=== PATIENT | male | born 1950 | race Caucasian/White ===

== ENCOUNTER 2017-01-18 22:59 | Emergency (ER) | payer MEDICARE, MEDICAID ==
[~2017-01-18] VITALS: Ht 175.3 cm; Wt 95.3 kg
[2017-01-18] MEDS ORDERED: FOLI1TAB2 PO (23:16)
[2017-01-18] MEDS ORDERED: FURO40TA2 PO (23:16)
[2017-01-18] MEDS ORDERED: SPIR100T PO (23:16)
[2017-01-18] MEDS ORDERED: MECLIZINE 25 MG TABLET PO ONE (23:45)
[2017-01-18] MEDS ORDERED: NS 500 ML IV ONE (23:45)
[2017-01-19 00:05] LABS: BASO # 0.1 K/mm3 (0.0-0.2); BASO % 1.1 % (0.0-1.0); EOS # 0.2 K/mm3 (0.0-0.50); EOS % 3.6 % (0.0-3.0); LARGE UNSTAINED CELL # 0.1 K/mm3 (0.0-0.4); LARGE UNSTAINED CELL % 1.3 % (0.0-4.0); LYMPH # 1.2 K/mm3 (1.5-4.5); LYMPH % 18.3 % (24.0-44.0); MEAN CORPUSCULAR HEMOGLOBIN 32.5 pg (27.0-33.0); MEAN CORPUSCULAR HGB CONC 34.1 g/dl (32.0-36.5); MEAN CORPUSCULAR VOLUME 95.2 fl (80.0-96.0); MONO # 0.5 K/mm3 (0.0-0.8); NEUTROPHILS # 4.2 K/mm3 (1.8-7.7); NEUTROPHILS % 67.7 % (36.0-66.0); PLATELET COUNT, AUTOMATED 103 k/mm3 (150-450); RED CELL DISTRIBUTION WIDTH 12.9 % (11.5-14.5); WHITE BLOOD COUNT 6.2 K/mm3 (4.0-10.0)
[2017-01-19 00:16] LABS: INR 0.91
[2017-01-19 00:22] LABS: ANION GAP 5 MEQ/L (8-16); BLOOD UREA NITROGEN 18 MG/DL (7-18); CALCIUM LEVEL 8.8 MG/DL (8.8-10.2); CARBON DIOXIDE LEVEL 30 MEQ/L (21-32); CHLORIDE LEVEL 102 MEQ/L (98-107); CREATININE FOR GFR 1.11 MG/DL (0.70-1.30); GLOMERULAR FILTRATION RATE > 60.0 (>49); GLUCOSE, FASTING 131 MG/DL (80-110); POTASSIUM SERUM 3.8 MEQ/L (3.5-5.1); SODIUM LEVEL 137 MEQ/L (136-145)
--- NOTE | 2017-01-19 00:30 | REPUSA ---
CLINICAL HISTORY: Syncope. TECHNIQUE: Multiple axial CT images were obtained through the brain without IV contrast material. COMMENTS: There is normal configuration of sella turcica. There are no intra or extra-axial collections. There is no mass effect or midline shift. There is no evidence of hematoma formation. No hydrocephalus is p resent. The ventricles are symmetrical. No abnormal calcifications are present. There is diffuse age-appropriate cerebellar and cerebral atrophy with proportionally dilated ventricl es and cortical sulci. There are bilateral periventricular and subcortical white matter hypolucencies compatible with mild c hronic microvascular disease. Otherwise, no significant focal abnormalities are seen either in the posterior fossa or supratentoria l compartment. IMPRESSION: 1. Age-appropriate cerebellar and cerebral atrophy. 2. Mild chronic microvascular disease. 3. No evidence of acute intracranial pathology. Thank you for your kind referral of this patient.
[2017-01-19 01:06] VITALS: O2SAT 94
[2017-01-19] MEDS ORDERED: MECL-68 PO (01:35)
[2017-01-19 01:48] VITALS: BP 142/71
--- NOTE | 2017-01-19 07:23 | ECGEPIP ---
Stationary ECG Study [facility] - ED Test Date: 2017-01-18 Pat Name: KISHAN VILLAFANA Department: Room: - Gender: M Supervisor Graphite: yann : 1950 Requested By: RANDY MCDANIEL Order Number: [id number] Reading MD: Silvana Marie Measurements Intervals [place] Rate: 91 P: 86 [place]: 139 QRS: 86 QRSD: 80 T: 71 QT: 347 QTc: 429 Interpretive Statements SINUS RHYTHM NSTTW ABNORMALITY SIMILAR 11/18/15 Electronically Signed On 01-19-2017 7:23:18 EDT by Silvana Marie
== END 2017-01-19 01:49 | disposition home or self-care (01) ==
LOC: M ED 22:59
DX: H83.09 Labyrinthitis, unspecified ear (principal); I10 Essential (primary) hypertension; K74.60 Unspecified cirrhosis of liver; F17.200 Nicotine dependence, unspecified, uncomplicated; Z82.49 Family history of ischemic heart disease and other diseases of the circulatory system; Z79.899 Other long term (current) drug therapy
CPT/HCPCS: 36415; 70450; 80048; 82550; 82553; 84443; 84484; 85025; 85610; 93005; 93041; 96374; 99284; G0480

== ENCOUNTER → 2019-05-11 | Outpatient (CLI) | payer MEDICARE, MEDICAID ==
[~2019-05-11] MED LIST: FOLI1TAB11 PO; FURO40TA2 PO; MECL1TAB31 PO; SPIR100T3 PO
[2019-05-11 13:55] LABS: ALBUMIN 3.5 GM/DL (3.2-5.2); ALT/SGPT 14 U/L (12-78); BILIRUBIN,TOTAL 0.8 MG/DL (0.2-1.0); BLOOD UREA NITROGEN 11 MG/DL (7-18); CALCIUM LEVEL 8.8 MG/DL (8.8-10.2); CARBON DIOXIDE LEVEL 29 MEQ/L (21-32); CHLORIDE LEVEL 98 MEQ/L (98-107); CHOLESTEROL LEVEL 169 MG/DL (<200); CHOLESTEROL RISK RATIO 4.023 (<5); CREATININE FOR GFR 0.95 MG/DL (0.70-1.30); GLOMERULAR FILTRATION RATE > 60.0 (>49); GLUCOSE, FASTING 98 MG/DL (70-100); HDL CHOLESTEROL 42 MG/DL (>40); LDL CHOLESTEROL 108 MG/DL (<100); NON-HDL-C 127 MG/DL; POTASSIUM SERUM 4.3 MEQ/L (3.5-5.1); PROSTATIC SPECIFIC AG MONITOR 0.14 NG/ML (< 4.00); SODIUM LEVEL 136 MEQ/L (136-145); TRIGLYCERIDES LEVEL 95 MG/DL (<150)
== END ==
LOC: M WUC 08:43
PROVIDERS: ATTEND Nurse Practitioner Family
DX: N40.0 Benign prostatic hyperplasia without lower urinary tract symptoms (principal); E78.00 Pure hypercholesterolemia, unspecified; I10 Essential (primary) hypertension

== ENCOUNTER 2021-02-21 22:07 | Emergency (ER) | payer MEDICARE, MEDICAID ==
[~2021-02-21] VITALS: Ht 177.8 cm; Wt 104.5 kg
[2021-02-21 23:01] LABS: APPEARANCE, URINE CLEAR (CLEAR); BACTERIA, URINE AUTO NEGATIVE (NEGATIVE); BILIRUBIN, URINE AUTO NEGATIVE (NEGATIVE); BLOOD, URINE BLOOD NEGATIVE (NEGATIVE); COLOR, URINE STRAW (YELLOW); GLUCOSE, URINE (UA) AUTO NEGATIVE (NEGATIVE); KETONE, URINE AUTO NEGATIVE (NEGATIVE); LEUKOCYTE ESTERASE, URINE AUTO NEGATIVE (NEGATIVE); NITRITE, URINE AUTO NEGATIVE (NEGATIVE); PROTEIN, URINE AUTO NEGATIVE (NEGATIVE); RBC, URINE AUTO 3 /HPF (0-3); SPECIFIC GRAVITY URINE AUTO 1.004 (1.002-1.035); SQUAMOUS EPITHELIAL CELL UR AU 0 /HPF (0-6); UROBILINOGEN, URINE AUTO 0.2 mg/dL (0.0-2.0); WBC, URINE AUTO 0 /HPF (0-3)
[2021-02-21 23:05] LABS: HEMATOCRIT 46.5 % (42.0-52.0); HEMOGLOBIN 15.2 g/dl (13.5-17.5); MEAN CORPUSCULAR HEMOGLOBIN 29.9 pg (27.0-33.0); MEAN CORPUSCULAR HGB CONC 32.7 g/dl (32.0-36.5); MEAN CORPUSCULAR VOLUME 91.5 fl (80.0-96.0); RED BLOOD COUNT 5.08 10^6/uL (4.30-6.10); WHITE BLOOD COUNT 4.6 10^3/uL (4.0-10.0)
[2021-02-21 23:26] LABS: BLOOD UREA NITROGEN 14 MG/DL (7-18); CALCIUM LEVEL 8.9 MG/DL (8.8-10.2); CARBON DIOXIDE LEVEL 29 MEQ/L (21-32); CHLORIDE LEVEL 102 MEQ/L (98-107); CREATININE FOR GFR 0.87 MG/DL (0.70-1.30); GLOMERULAR FILTRATION RATE > 60.0 (>42); GLUCOSE, FASTING 117 MG/DL (70-100); POTASSIUM SERUM 4.5 MEQ/L (3.5-5.1); SODIUM LEVEL 138 MEQ/L (136-145)
[2021-02-21 23:29] LABS: PLATELET COUNT, AUTOMATED 90 10^3/uL (150-450)
--- NOTE | 2021-02-21 23:47 | REPVR ---
PROCEDURE INFORMATION: Exam: XR Chest Exam date and time: 02/21/2021 10:59 PM Age: 71 years old Clinical indication: Pain; On breathing; Additional info: Chest pain/trauma TECHNIQUE: Imaging protocol: XR of the chest. Views: 2 views. COMPARISON: No relevant prior studies available. FINDINGS: Lungs: Dependent subsegmental pulmonary atelectasis. Pleural spaces: Unremarkable. No pleural effusion. No pneumothorax. Heart/Mediastinum: Unremarkable. No cardiomegaly. Bones/joints: Unremarkable. IMPRESSION: No acute findings. Electronically signed by: Sharath Herman On 02/21/2021 23:46:41 PM
--- NOTE | 2021-02-21 23:51 | REPVR ---
PROCEDURE INFORMATION: Exam: CT Chest Without Contrast; Diagnostic Exam date and time: 02/21/2021 11:19 PM Age: 71 years old Clinical indication: Pain; Right-sided; Additional info: Fall with right chest pain TECHNIQUE: Imaging protocol: Diagnostic computed tomography of the chest without contrast. 3D rendering (Not supervised by radiologist): MIP and/or 3D reconstructed images were created by the technologist. Radiation optimization: All CT scans at this facility use at least one of these dose optimization techniques: automated exposure control; mA and/or kV adjustment per patient size (includes targeted exams where dose is matched to clinical indication); or iterative reconstruction. COMPARISON: CR Chest, 2 view PA, Lat 2021-02-21 22:55 FINDINGS: Lungs: Mild bronchial wall thickening. Pleural spaces: Unremarkable. No pneumothorax. No pleural effusion. Heart: Moderate coronary artery calcification. Mediastinal space: Multiple paraesophageal and upper abdominal varices. Portal hypertension. Mild distal esophageal thickening. Aorta: Unremarkable. No aortic aneurysm. Lymph nodes: Unremarkable. No enlarged lymph nodes. Liver: Liver nodular contour, evidence of cirrhosis. Bones/joints: Acute right posterior nondisplaced 9 -12 rib fractures. Irregular sclerosis and patchy low attenuation within the opposing T6 and T7 vertebral bodies and endplates., likely degenerative in the absence any malignancy-not excluded. Soft tissues: Recanalized umbilical vein. IMPRESSION: 1. Acute right posterior nondisplaced 9 -12 rib fractures. 2. Liver nodular contour, evidence of cirrhosis. 3. Multiple paraesophageal and upper abdominal varices. Portal hypertension. 4. Irregular sclerosis and patchy low attenuation within the opposing T6 and T7 vertebral bodies and endplates., likely degenerative in the absence any malignancy-not excluded. Electronically signed by: Sharath Herman On 02/21/2021 23:50:49 PM
--- NOTE | 2021-02-22 00:18 | REPVR ---
PROCEDURE INFORMATION: Exam: CT Head Without Contrast Exam date and time: 02/21/2021 11:23 PM Age: 71 years old Clinical indication: Injury or trauma; Fall; Concussion/head injury; Injury details: Denies hitting head TECHNIQUE: Imaging protocol: Computed tomography of the head without contrast. Radiation optimization: All CT scans at this facility use at least one of these dose optimization techniques: automated exposure control; mA and/or kV adjustment per patient size (includes targeted exams where dose is matched to clinical indication); or iterative reconstruction. COMPARISON: CT Head without contrast 01/18/2017 11:34 PM FINDINGS: Brain: There is no evidence of intracranial bleed. There are patchy areas of low density in the periventricular white matter consistent with chronic ischemic changes. Cerebral ventricles: There is mild prominence of the ventricles. Paranasal sinuses: The clear paranasal sinuses. Mastoid air cells: Clear mastoid air cells. Orbital cavity: The orbits appear symmetric. Bones/joints: Unremarkable. No acute fracture. Soft tissues: There is no evidence of soft tissue abnormality. IMPRESSION: 1. Chronic ischemic changes. 2. No evidence of fracture and no evidence of bleed. Electronically signed by: Stiven Bryant On 02/22/2021 00:17:32 AM
[2021-02-22] MEDS ORDERED: PERCOCET 5MG/325MG TAB PO ONE (01:10)
[2021-02-22] MEDS ORDERED: LIDOCAINE 5% (LIDODERM) PATCH TD ONE (01:10)
[2021-02-22] MEDS ORDERED: LIDO5DIS41 TD (01:31)
[2021-02-22 01:45] VITALS: BP 142/58
--- NOTE | 2021-02-22 11:22 | ECGEPIP ---
[facility] - ED Test Date: 2021-02-21 Pat Name: KISHAN VILLAFANA Department: Room: - Gender: Male Core Inspector: : 1950 Requested By: JUANITO Vasquez Order Number: [id number] Reading MD: Silvana Marie Measurements Intervals [place] Rate: 92 P: 95 [place]: 124 QRS: 88 QRSD: 82 T: 49 QT: 368 QTc: 455 Interpretive Statements Sinus rhythm with premature supraventricular complexes NSTTW abnormalities similar 01/18/17 Electronically Signed on 02-22-2021 11:22:28 EDT by Silvana Marie
[2021-02-22] MEDS ORDERED: **NOTE PATIENT COMMENT** MISC XX SCH (21:00)
== END 2021-02-22 01:55 | disposition home or self-care (01) ==
LOC: M ED 22:07
DX: S22.41XA Multiple fractures of ribs, right side, initial encounter for closed fracture (principal); W19.XXXA Unspecified fall, initial encounter; Y92.9 Unspecified place or not applicable; Y93.9 Activity, unspecified; Y99.9 Unspecified external cause status; R16.0 Hepatomegaly, not elsewhere classified; Z79.899 Other long term (current) drug therapy

== ENCOUNTER → 2022-12-11 | Outpatient (REF) | payer MEDICARE, MEDICAID ==
[~2022-12-11] MED LIST changes: +LIDO5DIS41 TD
[2022-12-11 18:35] LABS: BLOOD UREA NITROGEN 17 MG/DL (9-23); CALCIUM LEVEL 9.1 MG/DL (8.3-10.6); CARBON DIOXIDE LEVEL 28 MMOL/L (20-31); CHLORIDE LEVEL 99 MMOL/L (98-107); CREATININE FOR GFR 0.92 MG/DL (0.70-1.30); GLOMERULAR FILTRATION RATE > 60.0 (>42); GLUCOSE, FASTING 93 MG/DL (74-106); POTASSIUM SERUM 4.6 MMOL/L (3.5-5.1); SODIUM LEVEL 135 MMOL/L (136-145)
== END ==
LOC: M LAB REF 16:23
PROVIDERS: ATTEND Pediatrics
DX: I10 Essential (primary) hypertension (principal); K74.60 Unspecified cirrhosis of liver

== ENCOUNTER → 2023-09-16 | Outpatient (REF) | payer MEDICARE, MEDICAID ==
[~2023-09-16] MED LIST changes: +MECL-209 PO; -MECL1TAB31 PO
[2023-09-16 18:19] LABS: BASO # 0.1 10^3/uL (0.0-0.2); BASO % 1.3 % (0.0-1.0); EOS # 0.2 10^3/uL (0.0-0.5); EOS % 3.4 % (0.0-3.0); HEMATOCRIT 47.8 % (42.0-52.0); HEMOGLOBIN 15.7 g/dl (13.5-17.5); LYMPH # 0.8 10^3/uL (1.5-5.0); MEAN CORPUSCULAR HEMOGLOBIN 30.3 pg (27.0-33.0); MEAN CORPUSCULAR HGB CONC 32.8 g/dl (32.0-36.5); MEAN CORPUSCULAR VOLUME 92.3 fl (80.0-96.0); MONO # 0.6 10^3/uL (0.0-0.8); MONO % 9.9 % (2.0-8.0); PLATELET COUNT, AUTOMATED 104 10^3/uL (150-450); RED BLOOD COUNT 5.18 10^6/uL (4.30-6.10); WHITE BLOOD COUNT 5.6 10^3/uL (4.0-10.0)
[2023-09-16 18:37] LABS: THYROID STIMULATING HORMONE 1.715 uIU/ML (0.55-4.78)
[2023-09-16 18:39] LABS: ALBUMIN 3.4 G/DL (3.2-5.2); ALKALINE PHOSPHATASE 109 U/L (46-116); ALT/SGPT 13 U/L (7.0-40); AST/SGOT 17 U/L (<34); BILIRUBIN,TOTAL 0.4 MG/DL (0.3-1.2); BLOOD UREA NITROGEN 17 MG/DL (9-23); CALCIUM LEVEL 9.2 MG/DL (8.3-10.6); CARBON DIOXIDE LEVEL 30 MMOL/L (20-31); CHLORIDE LEVEL 103 MMOL/L (98-107); CHOLESTEROL LEVEL 186 MG/DL (<200); CHOLESTEROL RISK RATIO 4.63 (<5); CREATININE FOR GFR 0.96 MG/DL (0.70-1.30); GLOMERULAR FILTRATION RATE > 60.0 (>42); GLUCOSE, FASTING 106 MG/DL (74-106); HDL CHOLESTEROL 40.1 MG/DL (>40); LDL CHOLESTEROL 122.5 MG/DL (<100); NON-HDL-C 145.9 MG/DL; POTASSIUM SERUM 5.1 MMOL/L (3.5-5.1); SODIUM LEVEL 138 MMOL/L (136-145); TOTAL PROTEIN 6.9 G/DL (5.7-8.2); TRIGLYCERIDES LEVEL 117 MG/DL (<150)
== END ==
LOC: M LAB REF 17:26
PROVIDERS: ATTEND Pediatrics
DX: K74.60 Unspecified cirrhosis of liver (principal); E78.5 Hyperlipidemia, unspecified

== ENCOUNTER → 2024-02-28 | Outpatient (REF) | payer MEDICARE, MEDICAID ==
[~2024-02-28] MED LIST changes: +ANOR1AER INH; +MOME50SP2 NARES
[2024-02-28 13:48] LABS: ALBUMIN 3.5 G/DL (3.2-5.2); ALKALINE PHOSPHATASE 114 U/L (46-116); ALT/SGPT 16 U/L (7.0-40); AST/SGOT 20 U/L (<34); BASO # 0.1 10^3/uL (0.0-0.2); BASO % 0.9 % (0.0-1.0); BILIRUBIN,DIRECT 0.2 MG/DL (<0.4); BILIRUBIN,TOTAL 0.7 MG/DL (0.3-1.2); BLOOD UREA NITROGEN 17 MG/DL (9-23); CALCIUM LEVEL 9.6 MG/DL (8.3-10.6); CARBON DIOXIDE LEVEL 30 MMOL/L (20-31); CHLORIDE LEVEL 100 MMOL/L (98-107); EOS # 0.1 10^3/uL (0.0-0.5); EOS % 1.9 % (0.0-3.0); GLOMERULAR FILTRATION RATE > 60.0 (>42); GLUCOSE, FASTING 102 MG/DL (74-106); HEMATOCRIT 47.8 % (42.0-52.0); HEMOGLOBIN 15.6 g/dl (13.5-17.5); LYMPH # 0.7 10^3/uL (1.5-5.0); LYMPH % 13.5 % (24.0-44.0); MEAN CORPUSCULAR HGB CONC 32.6 g/dl (32.0-36.5); MEAN CORPUSCULAR VOLUME 91.9 fl (80.0-96.0); MONO # 0.6 10^3/uL (0.0-0.8); MONO % 10.5 % (2.0-8.0); NEUTROPHILS # 3.9 10^3/uL (1.5-8.5); NEUTROPHILS % 72.8 % (36.0-66.0); PLATELET COUNT, AUTOMATED 102 10^3/uL (150-450); POTASSIUM SERUM 4.4 MMOL/L (3.5-5.1); SODIUM LEVEL 136 MMOL/L (136-145); WHITE BLOOD COUNT 5.4 10^3/uL (4.0-10.0)
== END ==
LOC: M LAB REF 12:12
PROVIDERS: ATTEND Pediatrics
DX: D69.6 Thrombocytopenia, unspecified (principal); K74.60 Unspecified cirrhosis of liver; I10 Essential (primary) hypertension

== ENCOUNTER → 2025-03-17 | Outpatient (REF) | payer MEDICARE, MEDICAID ==
[~2025-03-17] MED LIST changes: +LIDO1ADH93 TD; -LIDO5DIS41 TD
[2025-03-17 15:09] LABS: BASO # 0.1 10^3/uL (0.0-0.2); BASO % 1.0 % (0.0-1.0); EOS # 0.1 10^3/uL (0.0-0.5); EOS % 2.0 % (0.0-3.0); LYMPH # 0.7 10^3/uL (1.5-5.0); LYMPH % 13.3 % (24.0-44.0); MONO # 0.4 10^3/uL (0.0-0.8); MONO % 7.2 % (2.0-8.0); NEUTROPHILS # 3.7 10^3/uL (1.5-8.5); NEUTROPHILS % 76.1 % (36.0-66.0); PLATELET COUNT, AUTOMATED 102 10^3/uL (150-450)
[2025-03-17 15:33] LABS: ALT/SGPT 14.0 U/L (7.0-40); AST/SGOT 27.0 U/L (<34); CALCIUM LEVEL 8.9 MG/DL (8.3-10.6); CARBON DIOXIDE LEVEL 28.0 MMOL/L (20-31); CHLORIDE LEVEL 99.0 MMOL/L (98-107); CHOLESTEROL LEVEL 188.0 MG/DL (<200); CHOLESTEROL RISK RATIO 4.77 (<5); CREATININE FOR GFR 0.89 MG/DL (0.70-1.30); GLOMERULAR FILTRATION RATE 89.9 (>42); LDL CHOLESTEROL 125.0 MG/DL (<100); NON-HDL-C 148.6 MG/DL; POTASSIUM SERUM 4.3 MMOL/L (3.5-5.1); SODIUM LEVEL 138.0 MMOL/L (136-145); TRIGLYCERIDES LEVEL 118.0 MG/DL (<150)
== END ==
LOC: M LAB REF 14:16
PROVIDERS: ATTEND Pediatrics
DX: E78.5 Hyperlipidemia, unspecified (principal); I10 Essential (primary) hypertension; K74.60 Unspecified cirrhosis of liver

== ENCOUNTER → 2025-03-22 | Outpatient (CLI) | payer MEDICARE, MEDICAID | LOC: M RAD 10:04 | PROVIDERS: ATTEND Pediatrics | DX: M54.32 Sciatica, left side (principal); J44.9 Chronic obstructive pulmonary disease, unspecified ==

== ENCOUNTER 2025-04-01 10:30 | Day surgery (SDC) | payer MEDICARE, MEDICAID ==
[~2025-04-01] VITALS: Ht 172.7 cm; Wt 87.8 kg
[~2025-04-01 10:30] MED LIST changes: +LIDO1ADH20 TP; +PHENYLEPHRINE 10% OPHTH SOL 5ML OD PRN; +TREL1AER INH
[2025-04-01] MEDS ORDERED: MIDAZOLAM INJ 2 MG/2 ML VIAL As Ordered ONE (10:58)
[2025-04-01] MEDS: CYCLOPENTOLATE 1% OPHTH SOLN 2 ML BTL OD SCH (12:14)
[2025-04-01] MEDS: TROPICAMIDE 1% OPHTH SOLN 15ML OD SCH (12:14)
[2025-04-01] MEDS: OFLOXACIN 0.3 % (OCUFLOX) OPTH SOL 5ML OD ONE (12:14)
[2025-04-01] MEDS: LIDOCAINE 3.5% 1 ML OPHTH TOPICAL GEL OU ONE (12:15)
[2025-04-01] MEDS: PHENYLEPHRINE 2.5% OPHTH SOL 2ML OD SCH (12:15)
[2025-04-01] MEDS ORDERED: ASPI81TA26 PO (12:35)
[2025-04-01] MEDS: BSS IRRIG/VANCO(10MG)/TOBRA(5MG)/EPINEPH(1:1000-0.5CC)500ML BAG-ORONLY As Ordered ONE (13:06)
[2025-04-01] MEDS: LIDOCAINE 1% SDV 5 ML VIAL As Ordered ONE (13:06)
[2025-04-01] MEDS: CEFUROXIME 1 MG/0.1 ML INTRACAMERAL INJ As Ordered ONE (13:06)
[2025-04-01 13:20] VITALS: BP 124/79; TEMP 97; O2SAT 96
== END 2025-04-01 13:42 | disposition home or self-care (01) ==
LOC: M SDC 10:30
PROVIDERS: ATTEND Ophthalmology
DX: H25.11 Age-related nuclear cataract, right eye (principal); H57.03 Miosis; I10 Essential (primary) hypertension; J44.9 Chronic obstructive pulmonary disease, unspecified; K74.60 Unspecified cirrhosis of liver; E78.00 Pure hypercholesterolemia, unspecified; Z79.899 Other long term (current) drug therapy; Z79.51 Long term (current) use of inhaled steroids; Z79.82 Long term (current) use of aspirin; Z90.49 Acquired absence of other specified parts of digestive tract
CPT/HCPCS: 66982; J0697; J2250; J3010; V2632

== ENCOUNTER 2025-04-29 09:22 | Day surgery (SDC) | payer MEDICARE, MEDICAID ==
[~2025-04-29] VITALS: Ht 172.7 cm; Wt 88.7 kg
[~2025-04-29 09:22] MED LIST changes: +ASPI81TA26 PO; +MIDAZOLAM INJ 2 MG/2 ML VIAL As Ordered ONE; -PHENYLEPHRINE 10% OPHTH SOL 5ML OD PRN; +PHENYLEPHRINE 10% OPHTH SOL 5ML OS PRN
[2025-04-29] MEDS: OFLOXACIN 0.3 % (OCUFLOX) OPTH SOL 5ML OS ONE (10:54)
[2025-04-29] MEDS: CYCLOPENTOLATE 1% OPHTH SOLN 2 ML BTL OS SCH (10:55)
[2025-04-29] MEDS: LIDOCAINE 3.5% 1 ML OPHTH TOPICAL GEL OU ONE (10:55)
[2025-04-29] MEDS: PHENYLEPHRINE 2.5% OPHTH SOL 2ML OS SCH (10:55)
[2025-04-29] MEDS: TROPICAMIDE 1% OPHTH SOLN 15ML OS SCH (10:55)
[2025-04-29] MEDS: LIDOCAINE 1% SDV 5 ML VIAL As Ordered ONE (11:39)
[2025-04-29] MEDS: BSS IRRIG/VANCO(10MG)/TOBRA(5MG)/EPINEPH(1:1000-0.5CC)500ML BAG-ORONLY As Ordered ONE (11:42)
[2025-04-29] MEDS: CEFUROXIME 1 MG/0.1 ML INTRACAMERAL INJ As Ordered ONE (11:45)
[2025-04-29 11:51] VITALS: BP 159/69; TEMP 97.6; O2SAT 97
== END 2025-04-29 12:18 | disposition home or self-care (01) ==
LOC: M SDC 09:22
PROVIDERS: ATTEND Ophthalmology
DX: H25.12 Age-related nuclear cataract, left eye (principal); I10 Essential (primary) hypertension; J44.9 Chronic obstructive pulmonary disease, unspecified; E78.00 Pure hypercholesterolemia, unspecified; K74.60 Unspecified cirrhosis of liver; I69.354 Hemiplegia and hemiparesis following cerebral infarction affecting left non-dominant side; I69.328 Other speech and language deficits following cerebral infarction; Z79.899 Other long term (current) drug therapy; Z79.51 Long term (current) use of inhaled steroids; Z90.49 Acquired absence of other specified parts of digestive tract; Z87.19 Personal history of other diseases of the digestive system
CPT/HCPCS: 66984; J0697; J2250; J3010; V2632

== ENCOUNTER 2025-08-14 22:02 | Inpatient (IN) | payer MEDICARE, MEDICAID ==
[~2025-08-14] VITALS: Ht 177.8 cm; Wt 82.4 kg
[~2025-08-14 22:02] MED LIST changes: +LIDO1ADH20 TD; -LIDO1ADH20 TP; -MIDAZOLAM INJ 2 MG/2 ML VIAL As Ordered ONE; -PHENYLEPHRINE 10% OPHTH SOL 5ML OS PRN
[2025-08-14] MEDS: IPRATROPIUM 0.5 MG/ALBUTEROL 2.5 MG INH SOL UD 3 ML NEB SCH (22:24)
[2025-08-14] MEDS: IPRATROPIUM 0.5 MG/ALBUTEROL 2.5 MG INH SOL UD 3 ML NEB ONE (22:24)
[2025-08-14 22:28] LABS: ABG BASE EXCESS -1.4 (-2.0-2.0); ABG HCO3 23.5 MMOL/L (22.0-26.0); ABG O2 SATURATION 99.1 % (95.0-99.0); ABG PARTIAL PRESSURE CO2 40.2 mmHg (35.0-45.0); ABG PARTIAL PRESSURE O2 188.7 mmHg (75.0-100.0); ABG STANDARD HCO3 23.3 MMOL/L. (22.0-26.0); ABG TOTAL CO2 24.7 MMOL/L (23.0-31.0); ABG pH (ARTERIAL) 7.384 UNITS (7.350-7.450)
[2025-08-14 22:31] LABS: VENOUS BASE EXCESS -5.9 (-2.0-2.0); VENOUS HCO3 21.7 MMOL/L (23.0-27.0); VENOUS O2 SATURATION 73.3 % (60.0-80.0); VENOUS PARTIAL PRESSURE CO2 50.5 mmHg (38.0-50.0); VENOUS PARTIAL PRESSURE O2 44.2 mmHg (30.0-50.0); VENOUS PH 7.251 UNITS (7.330-7.430); VENOUS STANDARD HCO3 19.1 MMOL/L; VENOUS TOTAL CO2 23.2 MMOL/L (24.0-28.0)
[2025-08-14 22:38] LABS: BASO # 0.0 10^3/uL (0.0-0.2); BASO % 0.8 % (0.0-1.0); EOS # 0.0 10^3/uL (0.0-0.5); EOS % 0.0 % (0.0-3.0); LYMPH # 0.4 10^3/uL (1.5-5.0); LYMPH % 7.4 % (24.0-44.0); MONO # 0.6 10^3/uL (0.0-0.8); MONO % 11.0 % (2.0-8.0); NEUTROPHILS # 4.2 10^3/uL (1.5-8.5); NEUTROPHILS % 80.4 % (36.0-66.0)
[2025-08-14] MEDS: ACETAMINOPHEN *IV* 1,000 MG in IV 1 EA IV ONE (22:49)
[2025-08-14 22:56] LABS: CK-MB VALUE MASS 3.9 NG/ML (<3.6)
[2025-08-14 23:05] LABS: PLATELET COUNT, AUTOMATED 75 10^3/uL (150-450)
[2025-08-14] MEDS: NS (Normal Saline) 0.9% 1,000 ML IV ONE (23:05)
[2025-08-14 23:57] LABS: CK-MB VALUE MASS 3.9 NG/ML (<3.6)
[2025-08-15] VITALS (8 sets, daily range): BP systolic 88–136; BP diastolic 56–70; TEMP 96.8–97.9; O2SAT 90–95
[2025-08-15 00:11] LABS: ALT/SGPT 15.0 U/L (7.0-40); AST/SGOT 67.0 U/L (<34)
[2025-08-15 00:15] LABS: CPK CREATINE PHOSPHOKINASE 1017.0 U/L (46-171); MB/CK RELATIVE INDEX 0.38 (< OR =4)
[2025-08-15] MEDS ORDERED: ISOVUE-370 76% 100 ML VIAL As Ordered ONE (00:31)
[2025-08-15 00:44] LABS: CPK CREATINE PHOSPHOKINASE 990.0 U/L (46-171); MB/CK RELATIVE INDEX 0.39 (< OR =4)
[2025-08-15] MEDS: PIPERACILLIN/TAZOBACTAM SOD 4.5 GM in DEXTROSE 5% (D5W) ADV/MINI-BAG 50 ML IV ONE (01:13)
[2025-08-15] MEDS ORDERED: HOME MED LIST COMPLETE! XX SCH (04:25)
[2025-08-15] MEDS ORDERED: ALBUTEROL SULFATE 2.5 MG/0.5 ML INH CONCENTRATE NEB SOLN INH PRN (04:55)
[2025-08-15] MEDS ORDERED: ACETAMINOPHEN 500 MG TAB PO PRN (04:55)
[2025-08-15] MEDS ORDERED: MOM 30 ML SUSPENSION UDC PO PRN (04:55)
[2025-08-15] MEDS: NS 0.9% IV ONE (05:08)
[2025-08-15] MEDS: [UNRECOGNIZED DRUG - OTHER] IV ONE (05:08)
[2025-08-15 05:16] LABS: CALCIUM LEVEL 8.3 MG/DL (8.3-10.6); CARBON DIOXIDE LEVEL 17.0 MMOL/L (20-31); CHLORIDE LEVEL 100.0 MMOL/L (98-107); CREATININE FOR GFR 0.93 MG/DL (0.70-1.30); GLOMERULAR FILTRATION RATE 86.2 (>42); POTASSIUM SERUM 3.6 MMOL/L (3.5-5.1); SODIUM LEVEL 135.0 MMOL/L (136-145)
[2025-08-15] MEDS ORDERED: BENZONATATE 100 MG CAPSULE PO PRN (05:55)
[2025-08-15] MEDS: ENOXAPARIN 80 MG/0.8 ML SYRINGE (J1650 PER 10MG) SC SCH (06:46)
[2025-08-15] MEDS: NS (Normal Saline) 0.9% 1,000 ML IV SCH (06:47)
[2025-08-15] MEDS: cefTRIAXone SOD 1 GM in DEXTROSE 5% (D5W) ADV/MINI-BAG 50 ML IV SCH (06:47)
[2025-08-15] MEDS: IPRATROPIUM 0.5 MG/ALBUTEROL 2.5 MG INH SOL UD 3 ML INH SCH (07:31)
[2025-08-15 07:54] LABS: BASO # 0.0 10^3/uL (0.0-0.2); BASO % 0.3 % (0.0-1.0); EOS # 0.0 10^3/uL (0.0-0.5); EOS % 0.3 % (0.0-3.0); LYMPH # 0.3 10^3/uL (1.5-5.0); LYMPH % 7.4 % (24.0-44.0); MONO # 0.2 10^3/uL (0.0-0.8); MONO % 5.4 % (2.0-8.0); NEUTROPHILS # 3.2 10^3/uL (1.5-8.5); NEUTROPHILS % 86.1 % (36.0-66.0)
[2025-08-15 07:56] LABS: CALCIUM LEVEL 7.8 MG/DL (8.3-10.6); CARBON DIOXIDE LEVEL 23.0 MMOL/L (20-31); CHLORIDE LEVEL 103.0 MMOL/L (98-107); CREATININE FOR GFR 0.9 MG/DL (0.70-1.30); GLOMERULAR FILTRATION RATE 89.6 (>42); POTASSIUM SERUM 3.8 MMOL/L (3.5-5.1); SODIUM LEVEL 137.0 MMOL/L (136-145)
[2025-08-15 08:01] LABS: PLATELET COUNT, AUTOMATED 71 10^3/uL (150-450)
[2025-08-15] MEDS ORDERED: OSELTAMIVIR PHOSPHATE 75 MG CAP PO SCH (09:00)
[2025-08-15] MEDS: OSELTAMIVIR PHOSPHATE 75 MG CAP PO SCH (09:43)
[2025-08-15] MEDS: PANTOPRAZOLE 40MG TAB PO SCH (09:43)
[2025-08-15] MEDS: predniSONE 20 MG TAB PO SCH (09:43)
[2025-08-15] MEDS: AZITHROMYCIN 250 MG TABLET PO SCH (09:43)
[2025-08-15] MEDS: METOPROLOL TART 25 MG TABLET PO SCH (09:44)
[2025-08-15] MEDS: SYMBICORT 160/4.5MCG INHALER 6GM INH SCH (11:57)
[2025-08-15] MEDS: ASPIRIN 81 MG ENTERIC TABLET PO SCH (13:16)
[2025-08-15] MEDS: FOLIC ACID 1 MG TAB PO SCH (13:16)
[2025-08-15] MEDS: TIOTROPIUM BROM 2.5MCG/ACTUATION 4GM INH INH SCH (14:02)
[2025-08-15] MEDS: NS 500 ML IV ONE (22:38)
[2025-08-16] VITALS (10 sets, daily range): BP systolic 102–147; BP diastolic 54–83; TEMP 97.2–97.9; O2SAT 91–94
[2025-08-16 05:53] LABS: BASO # 0.0 10^3/uL (0.0-0.2); BASO % 0.0 % (0.0-1.0); EOS # 0.0 10^3/uL (0.0-0.5); EOS % 0.0 % (0.0-3.0); LYMPH # 0.5 10^3/uL (1.5-5.0); LYMPH % 10.3 % (24.0-44.0); MONO # 0.3 10^3/uL (0.0-0.8); MONO % 5.3 % (2.0-8.0); NEUTROPHILS # 4.3 10^3/uL (1.5-8.5); NEUTROPHILS % 84.0 % (36.0-66.0)
[2025-08-16 06:15] LABS: CALCIUM LEVEL 8.0 MG/DL (8.3-10.6); CARBON DIOXIDE LEVEL 24 MMOL/L (20-31); CHLORIDE LEVEL 108 MMOL/L (98-107); CHOLESTEROL LEVEL 159 MG/DL (<200); CHOLESTEROL RISK RATIO 4.96 (<5); CREATININE FOR GFR 0.78 MG/DL (0.70-1.30); GLOMERULAR FILTRATION RATE > 90.0 (>42); LDL CHOLESTEROL 109.2 MG/DL (<100); NON-HDL-C 127.0 MG/DL; POTASSIUM SERUM 3.2 MMOL/L (3.5-5.1); SODIUM LEVEL 141 MMOL/L (136-145); TRIGLYCERIDES LEVEL 89 MG/DL (<150)
[2025-08-16 06:43] LABS: PLATELET COUNT, AUTOMATED 68 10^3/uL (150-450)
[2025-08-16] MEDS: POTASSIUM CHLORIDE 10MEQ SR TABLET PO ONE (08:04)
[2025-08-16] MEDS ORDERED: VARIBAR PUDDING 40% w/v 230ML TUBE As Ordered ONE (14:12)
[2025-08-16] MEDS ORDERED: BARIUM SULFATE 700 MG TABLET As Ordered ONE (14:12)
[2025-08-16] MEDS ORDERED: E-Z-PAQUE 96% w/w SUSP 176 GM BTL As Ordered ONE (14:12)
[2025-08-16] MEDS ORDERED: VARIBAR NECTAR 40% w/v 240ML SUSP BTL As Ordered ONE (14:13)
[2025-08-16] MEDS: ROSUVASTATIN 10 MG TAB PO SCH (21:00)
[2025-08-17] VITALS (19 sets, daily range): BP systolic 120–155; BP diastolic 58–76; TEMP 97–98.9; O2SAT 89–97
[2025-08-17 06:26] LABS: BASO # 0.0 10^3/uL (0.0-0.2); BASO % 0.3 % (0.0-1.0); EOS # 0.0 10^3/uL (0.0-0.5); EOS % 0.0 % (0.0-3.0); LYMPH # 0.7 10^3/uL (1.5-5.0); LYMPH % 24.0 % (24.0-44.0); MONO # 0.2 10^3/uL (0.0-0.8); MONO % 7.7 % (2.0-8.0); NEUTROPHILS # 1.9 10^3/uL (1.5-8.5); NEUTROPHILS % 67.7 % (36.0-66.0)
[2025-08-17 06:30] LABS: PLATELET COUNT, AUTOMATED 66 10^3/uL (150-450)
[2025-08-17 06:41] LABS: CALCIUM LEVEL 7.5 MG/DL (8.3-10.6); CARBON DIOXIDE LEVEL 29 MMOL/L (20-31); CHLORIDE LEVEL 106 MMOL/L (98-107); CREATININE FOR GFR 0.70 MG/DL (0.70-1.30); GLOMERULAR FILTRATION RATE > 90.0 (>42); POTASSIUM SERUM 3.0 MMOL/L (3.5-5.1); SODIUM LEVEL 143 MMOL/L (136-145)
[2025-08-17] MEDS ORDERED: ACETAMINOPHEN 325 MG TAB PO PRN (08:45)
[2025-08-17] MEDS: POTASSIUM CHLORIDE 10% LIQ 20MEQ/15ML UDC PO SCH (09:36)
[2025-08-17] MEDS: METOPROLOL SUCC. 25 MG *XL* TAB PO SCH (09:37)
[2025-08-17] MEDS: ENOXAPARIN 40 MG/0.4 ML SYRINGE (J1650 PER 10MG) SC SCH (09:39)
[2025-08-18] VITALS (10 sets, daily range): BP systolic 140–147; BP diastolic 62–69; TEMP 97.4–97.6; O2SAT 89–93
[2025-08-18 05:53] LABS: PLATELET COUNT, AUTOMATED 64 10^3/uL (150-450)
[2025-08-18 06:15] LABS: CALCIUM LEVEL 7.6 MG/DL (8.3-10.6); CARBON DIOXIDE LEVEL 29 MMOL/L (20-31); CHLORIDE LEVEL 102 MMOL/L (98-107); CREATININE FOR GFR 0.65 MG/DL (0.70-1.30); GLOMERULAR FILTRATION RATE > 90.0 (>42); POTASSIUM SERUM 3.1 MMOL/L (3.5-5.1); SODIUM LEVEL 139 MMOL/L (136-145)
[2025-08-18] MEDS: POTASSIUM CHLORIDE 10% LIQ 20MEQ/15ML UDC PO SCH (07:51)
[2025-08-18] MEDS ORDERED: PRED20TA PO (12:14)
[2025-08-18] MEDS ORDERED: CEFD1CAP9 PO (12:14)
[2025-08-18] MEDS ORDERED: OSEL75CA2 PO (12:14)
== END 2025-08-18 13:11 | disposition home or self-care (01) | DRG 871 ==
LOC: EDBD 22:02 → M ED 22:02 → M ED INP 08-15 04:51 → M PCU 08-15 05:49
PROVIDERS: ADMIT Student in an Organized Health Care Education/Training Program; ATTEND Student in an Organized Health Care Education/Training Program
DX: A41.89 Other specified sepsis (principal); J15.9 Unspecified bacterial pneumonia; J96.01 Acute respiratory failure with hypoxia; M62.82 Rhabdomyolysis; D61.818 Other pancytopenia; J44.0 Chronic obstructive pulmonary disease with (acute) lower respiratory infection; I5A Non-ischemic myocardial injury (non-traumatic); K70.30 Alcoholic cirrhosis of liver without ascites; I69.391 Dysphagia following cerebral infarction; I48.91 Unspecified atrial fibrillation; J10.1 Influenza due to other identified influenza virus with other respiratory manifestations; R13.12 Dysphagia, oropharyngeal phase; F17.200 Nicotine dependence, unspecified, uncomplicated; K57.90 Diverticulosis of intestine, part unspecified, without perforation or abscess without bleeding; I69.320 Aphasia following cerebral infarction; Z87.442 Personal history of urinary calculi; Z79.82 Long term (current) use of aspirin; Z88.8 Allergy status to other drugs, medicaments and biological substances